=== PATIENT | male | born 1980 | race Caucasian/White ===

== ENCOUNTER 2023-06-20 06:46 | Outpatient (CLI) | payer OTHER, SELFPAY ==
--- NOTE | ~2023-06-20 | MR_ITS ---
EXAMINATION: MR lumbar spine wo con DATE: 06/20/2023 11:23 INDICATION: LOW BACK PAIN RADIATING INTO BOTH LEGS. . TECHNIQUE: Magnetic resonance imaging (MRI) of the lumbar spine was performed without intravenous con trast. Sequences included sagittal T2-weighted FSE, sagittal T2-weighted FS FSE, sagittal T1-weighted FSE, and axial T2-weighted FSE. COMPARISON: CT abdomen pelvis 03/02/2014 FINDINGS: The last fully formed and hydrated disc is designated L5-S1. The marrow signal is benign an d homogenous. Conus terminates at L2. Severe loss of disc height at L5-S1. Mild loss of disc height a nd hydration at L2-3. Unfused posterior L5 arch. The following disc levels are specifically discussed : T11-T12: The disc does not extend beyond the endplate margin. There is no facet joint osteoarthritis. There is no neural foraminal stenosis. There is no central canal stenosis. T12-L1: The disc does not extend beyond the endplate margin. There is no facet joint osteoarthritis. There is no neural foraminal stenosis. There is no central canal stenosis. L1-L2: The disc does not extend beyond the endplate margin. There is no facet joint osteoarthritis. T here is no neural foraminal stenosis. There is no central canal stenosis. L2-L3: Mild diffuse bulge. Circumferential posterior disc rent.. There is mild bilateral facet joint osteoarthritis. There is mild bilateral inferior neural foraminal stenosis. There is no central canal stenosis. L3-L4: Mild diffuse bulge. There is mild bilateral facet joint osteoarthritis. There is mild bilatera l inferior neural foraminal stenosis. There is no central canal stenosis. L4-L5: Mild diffuse bulge. There is mild bilateral facet joint osteoarthritis. There is mild bilatera l neural foraminal stenosis. There is no central canal stenosis. L5-S1: Mild diffuse bulge. 3 mm left paracentral protrusion. There is mild right and moderate left fa cet joint osteoarthritis. There is moderate bilateral neural foraminal stenosis. There is no central canal stenosis. IMPRESSION: Severe degenerative disc disease at L5-S1 with moderate bilateral neural foraminal narrowing. Reviewed, dictated and finalized at location K. APPRAISER IMPRESSION: Severe degenerative disc disease at L5-S1 with moderate bilateral neural forami nal narrowing.
== END 2023-06-20 06:47 | disposition home or self-care (01) ==
DX: M54.50 Low back pain, unspecified (principal)
CPT/HCPCS: 72148